=== PATIENT | male | born 1950 | race Caucasian/White ===

== ENCOUNTER 2016-11-05 11:09 | Outpatient (CLI) | payer OTHER ==
[2016-11-04 10:06] LABS: % IMMATURE GRANULOCYTES 0.4 % (0.0-1.1); ABSOLUTE IMMATURE GRANULOCYTES 0.02 10^3/uL (0-0.10); HEMATOCRIT 21.2 % (40.0-51.0); HEMOGLOBIN 6.8 g/dL (13.7-17.5); MEAN CELL HEMOGLOBIN 38.2 pg (27.9-34.1); MEAN CELL HEMOGLOBIN CONC. 32.1 g/dL (32.4-36.7); MEAN CELL VOLUME 119.1 fL (81.5-99.8); MEAN PLATELET VOLUME 10.9 fL (8.7-11.7); RED BLOOD CELL COUNT 1.78 10^6/uL (4.40-6.38); RED CELL DISTRIBUTION WIDTH 23.3 % (11.5-15.2)
== END 2016-11-05 14:30 | disposition home or self-care (01) ==
LOC: FOBOP 11:09
PROVIDERS: ATTEND Internal Medicine Hematology & Oncology
PROC: 30233N1 Transfusion of Nonautologous Red Blood Cells into Peripheral Vein, Percutaneous Approach (ICD-10-PCS; principal; 2016-11-05)
DX: D53.9 Nutritional anemia, unspecified (principal)
CPT/HCPCS: 36430; P9016; P9040

== ENCOUNTER → 2016-11-19 | Outpatient (CLI) | payer OTHER | LOC: FIMAGING 10:47 | PROVIDERS: ATTEND Specialist | DX: N28.89 Other specified disorders of kidney and ureter (principal) ==

== ENCOUNTER → 2016-12-16 | Day surgery (SDC) | payer OTHER ==
[~2016-12-16] MED LIST: CEFAZOLIN 1 GM/DEXTROSE/50 ML BAG IV ONE; LIDOCAINE 1% 2 ML INJ ONE; LIDOCAINE 1% 5 ML SDV ID PRN; LIDOCAINE 2% 100 MG/5 ML SYR ONE; LR 1,000 ML IV ONE; MANNITOL 20% 100 GM/500 ML BAG IV ONE; PROPOFOL 200 MG/20 ML VIAL ONE; ROCURONIUM 100 MG/10 ML VIAL ONE; SKIN ADHESIVE (DERMABOND) 1 EACH TP ONE; THROMBIN (BOVINE) 5,000 UNIT VIAL TP ONE; fentaNYL 100 MCG/2 ML INJ ONE
--- NOTE | 2016-12-16 12:07 | SOAPPROG ---
SOAP Progress Note Assessment/Plan: Assessment: Renal mass Acute discussed at length and risks of having partial nephrectomy on plavix. bleeding, and risks and plan to delay and follow with sonograms to confirm stability of lesion til pt off Plavix Plan: delay surgery til pt off Plavix 12/16/16 12:04 Subjective: discussed situation with and patient and plan for delaying surgical rx since risks of surgery out weigh the risks of waiting. Physical Exam - Physical Exam General Appearance: alert Neck: supple Respiratory: normal breath sounds, No respiratory distress Cardiac/Chest: regular rate, rhythm Abdomen: soft Extremities: No calf tenderness, No Dionte's sign Neuro/Psych: alert, oriented x 3 ICD10 Worksheet Patient Problems: Problems Problem Status Onset Anemia Acute History of coronary artery disease Acute Renal mass Acute - ICD10 Problem Qualifiers (1) Renal mass
== END | disposition home or self-care (01) ==
LOC: FSGY 10:17 → UNDOADMIN 10:17 → F3N 10:17 → EDSTATUS 11:45
PROVIDERS: ATTEND Specialist
DX: N28.89 Other specified disorders of kidney and ureter (principal); Z53.8 Procedure and treatment not carried out for other reasons; I25.10 Atherosclerotic heart disease of native coronary artery without angina pectoris; I25.2 Old myocardial infarction; Z95.5 Presence of coronary angioplasty implant and graft; I10 Essential (primary) hypertension; E78.00 Pure hypercholesterolemia, unspecified
CPT/HCPCS: J0690; J2001; J2704; J3010

== ENCOUNTER → 2017-05-20 | Outpatient (CLI) | payer OTHER | LOC: FIMAGING 12:58 | PROVIDERS: ATTEND Specialist | DX: N28.89 Other specified disorders of kidney and ureter (principal) ==

== ENCOUNTER 2017-06-02 10:23 | Inpatient (IN) | payer OTHER ==
--- NOTE | 2017-06-01 15:02 | GHP ---
[f rep st] PREOP HISTORY AND PHYSICAL HISTORY OF PRESENT ILLNESS: By history, this is a 66-year-old gentleman who has had a left renal mass. At the present time, he is admitted for attempted robotic partial nephrectomy of the left side. He has had cardiovascular issues and maintained and treated by Dr. Jackson. He developed anemia that originally was thought to maybe be a paraneoplastic syndrome, but his blood counts have improved, and the concern at this time is maybe it is related to medication. Options of therapy of an ultrasound biopsy, radiofrequency ablation, cryotherapy , or CyberKnife have been discussed. At the present time, he prefers to have excision so he is admitted for the above procedure. He has had an ultrasound that confirms that he still has the lesion, and it has not grown appreciably. PAST MEDICAL HISTORY: Myocardial infarction, hypertension, hypercholesterolemia. PAST SURGICAL HISTORY: Angioplasty. MEDICATIONS: Include aspirin, atorvastatin, carvedilol. He is off his Plavix. ALLERGIES: None. FAMILY HISTORY: Positive for bladder cancer and hypertension. SOCIAL HISTORY: Moderate alcohol consumption, nonsmoker. REVIEW OF SYSTEMS: Negative cardiac, respiratory, GI, and endocrine. PHYSICAL EXAM: VITAL SIGNS: Stable. CHEST: Clear. HEART: Regular rate and rhythm. ABDOMEN: Normal. No organomegaly, rebound, or guarding. EXTREMITIES : Lower extremities are normal. PLAN: At the present time, he is admitted for the left partial nephrectomy. /[id number]/MODL MTDD
--- NOTE | 2017-06-02 08:22 | PDHPUP ---
History & Physical Update H&P update statement: This history and physical update is based on an assessment of the patient which was completed after admission or registration (within 24 hours), but prior to the surgery/procedure. H&P update: H&P reviewed & patient examined, no change in patient's condition since H&P completed
[~2017-06-02 10:23] MED LIST changes: -CEFAZOLIN 1 GM/DEXTROSE/50 ML BAG IV ONE; -LIDOCAINE 1% 2 ML INJ ONE; -LIDOCAINE 1% 5 ML SDV ID PRN; -LIDOCAINE 2% 100 MG/5 ML SYR ONE; -LR 1,000 ML IV ONE; -PROPOFOL 200 MG/20 ML VIAL ONE; -ROCURONIUM 100 MG/10 ML VIAL ONE; -SKIN ADHESIVE (DERMABOND) 1 EACH TP ONE; +ceFAZolin 2 GM/DEXTROSE 100 ML IV ONE; -fentaNYL 100 MCG/2 ML INJ ONE
[2017-06-02] MEDS ORDERED: LR 1,000 ML IV ONE (10:42)
[2017-06-02] MEDS ORDERED: LIDOCAINE 1% 2 ML INJ ID PRN (10:42)
[2017-06-02] MEDS ORDERED: CEFAZOLIN 2 GM/DEXTROSE/100 ML BAG IV ONE (10:54)
[2017-06-02] MEDS ORDERED: MIDAZOLAM 2 MG/2 ML VIAL IVP ONE (11:05)
--- NOTE | 2017-06-02 11:05 | PDANEPAE ---
ANE History of Present Illness left partial nephrectomy ANE Past Medical History - Cardiovascular History Hx Hypertension: No Hx Arrhythmias: No Hx Chest Pain: No Hx Coronary Artery / Peripheral Vascular Disease: Yes Hx CHF / Valvular Disease: No Hx Palpitations: No Cardiovascular History Comment: CT 04/2016. ANEMIA -HOSP 07/13-07/16 2016 - Pulmonary History Hx COPD: No Hx Asthma/Reactive Airway Disease: No Hx Recent Upper Respiratory Infection: No Hx Oxygen in Use at Home: No Hx Sleep Apnea: No Sleep Apnea Screening Result - Last Documented: Positive - Neurologic History Hx Cerebrovascular Accident: No Hx Seizures: No Hx Dementia: No - Endocrine History Hx Diabetes: No - Renal History Hx Renal Disorders: Yes Renal History Comment: MASS L KIDNEY - Liver History Hx Hepatic Disorders: No - Neurological & Psychiatric Hx Hx Neurological and Psychiatric Disorders: No - Cancer History Hx Cancer: Yes Cancer History Comment: KIDNEY MASS - Congenital Disorder History Hx Congenital Disorders: No - GI History Hx Gastrointestinal Disorders: No - Other Health History Other Health History: NEG - Chronic Pain History Chronic Pain: No - Surgical History Prior Surgeries: ANGIOGRAM - STENT 04/2016 ANE Review of Systems Review of systems is: negative Review of Systems: - Exercise capacity Exercise capacity: >=4 METS METS (RN): 4 METS ANE Patient History - Allergies Allergies/Adverse Reactions: No Known Allergies Allergy (Unverified 07/13/16 10:32) - Home Medications Home Medications: Aspirin EC [Aspirin EC 81 mg (*)] 81 mg PO DAILY 07/13/16 [Last Taken 05/27/17] Atorvastatin Calcium [Lipitor 10 mg (*)] 10 mg PO HS 07/13/16 [Last Taken ] Carvedilol [Coreg (*)] 3.125 mg PO BIDMEAL 07/13/16 [Last Taken 06/02/17 04:00] Multivitamins [Multivitamin (*)] 1 each PO DAILY 07/13/16 [Last Taken 05/27/17] Nitroglycerin [Nitrostat 0.4 mg (*)] 0.4 mg SL Q5M PRN 07/13/16 [Last Taken Unknown] - NPO status NPO Status: no food or drink >8 hours NPO Since - Liquids (Date): 06/02/17 NPO Since - Liquids (Time): 08:00 NPO Since - Solids (Date): 06/01/17 NPO Since - Solids (Time): 18:00 - Anes Hx Anes Hx: no prior problems - Smoking Hx Smoking Status: Never smoked - Alcohol Use Alcohol Use: Occasionally (7/wk) - Family Anes Hx Family Hx Anesthesia Complications: NEG ANE Labs/Vital Signs - Vital Signs Blood Pressure: 172/83 Heart Rate: 82 Respiratory Rate: 16 O2 Sat (%): 96 Height: 179.07 cm Weight: 106.594 kg ANE Physical Exam - Airway Neck exam: FROM Mallampati Score: Class 1 Mouth exam: normal dental/mouth exam - Pulmonary Pulmonary: no respiratory distress - Cardiovascular Cardiovascular: regular rate and rhythym - ASA Status ASA Status: III ANE Anesthesia Plan Anesthesia Plan: general endotracheal anesthesia
[2017-06-02] MEDS ORDERED: ROCURONIUM 100 MG/10 ML VIAL ONE (11:44)
[2017-06-02] MEDS ORDERED: LIDOCAINE 2% 5 ML SDV ONE (11:44)
[2017-06-02] MEDS ORDERED: PROPOFOL 200 MG/20 ML VIAL ONE (11:45)
[2017-06-02] MEDS ORDERED: fentaNYL 100 MCG/2 ML INJ ONE ×3 (11:45→15:44)
[2017-06-02] MEDS ORDERED: DEXAMETHASONE 4 MG/ML VIAL ONE (12:20)
[2017-06-02] MEDS ORDERED: INDOCYANINE GREEN 25 MG VIAL ONE (14:35)
[2017-06-02] MEDS ORDERED: THROMBIN(HUM PLAS)/FIBRINOG/CA 5 ML VIAL TP ONE (14:46)
[2017-06-02] MEDS ORDERED: SUGAMMADEX SODIUM 200 MG/2 ML VIAL IVP ONE (15:07)
[2017-06-02] MEDS ORDERED: ONDANSETRON 4 MG/2 ML VIAL ONE (15:07)
[2017-06-02] MEDS ORDERED: OXYCODONE/APAP 5/325 TAB PO PRN (15:26)
[2017-06-02] MEDS ORDERED: MEPERIDINE 25 MG/ML SYR IVP PRN (15:26)
[2017-06-02] MEDS ORDERED: fentaNYL 100 MCG/2 ML INJ IVP PRN (15:26)
[2017-06-02] MEDS ORDERED: HYDROmorphONE/DILAUDID 1 MG/ML INJ IVP PRN (15:26)
[2017-06-02] MEDS ORDERED: ALBUTEROL 3 ML DEYVIAL IH PRN (15:26)
[2017-06-02] MEDS ORDERED: ONDANSETRON 4 MG/2 ML VIAL IVP PRN ×2 (15:26→15:47)
[2017-06-02] MEDS ORDERED: PROMETHAZINE HCL 25 MG/ML INJ IVP PRN (15:26)
[2017-06-02] MEDS ORDERED: NALOXONE HCL 0.4 MG/ML INJ IVP PRN ×2 (15:26→15:47)
[2017-06-02] MEDS ORDERED: ceFAZolin 1 GM VIAL ONE ×2 (15:38)
[2017-06-02] MEDS ORDERED: BUPIVACAINE 0.25% 30 ML SDV ONE (15:44)
[2017-06-02] MEDS ORDERED: oxyCODONE IR 5 MG TAB PO PRN (15:47)
[2017-06-02] MEDS ORDERED: ACETAMINOPHEN 325 MG TAB PO PRN (15:47)
[2017-06-02] MEDS ORDERED: METOCLOPRAMIDE 10 MG/2 ML VIAL IVP PRN (15:47)
[2017-06-02] MEDS ORDERED: LORazepam 2 MG/ML INJ IVP PRN (15:47)
--- NOTE | 2017-06-02 15:54 | POSTOPPROG ---
Post Op Note Date of Operation: 06/02/17 Surgeon: Rodney Stevenson Silver Solution Mixer: Kim Anesthesia: GET(General Endotracheal) Pre-op Diagnosis: renal mass Procedure: RA left partial nep Inf/Abcess present in the surg proc area at time of surgery?: No EBL: 100-500 Drains: Aurelio Cowart Specimen(s): dictated and specimen sent
--- NOTE | 2017-06-02 17:11 | GOP ---
[f rep st] OPERATIVE REPORT DATE OF OPERATION: 06/02/2017 SURGEON: Rodney Stevenson MD AUTOMOBILE [employer] PROPERTY UNDERWRITER: Cara Alvarez PREOPERATIVE DIAGNOSIS: Left renal mass. POSTOPERATIVE DIAGNOSIS: Left renal mass. PROCEDURE PERFORMED: Left robotic-assisted partial nephrectomy and intraoperative immunofluorescence utilization of the Firefly and intraoperative ultrasound of the renal mass. FINDINGS: INDICATIONS: Preoperatively discussed with he and his the indications, complications, risks associated with this procedure, complication of bleeding, infection, urinary leak, positive margins, need for open surgery, other procedures. I discussed the complexity of the renal hilum based on the blood vessels and that may increase the risk of bleeding from his anatomic variation. Written and verbal consent was obtained. DESCRIPTION OF PROCEDURE: He underwent general anesthesia, after being positioned for a right robotic-assisted partial nephrectomy and the all sites padded, an axillary roll placed and antithrombotic pumps and had a Patino catheter placed, the appropriate timeout and being prepped and draped in normal sterile fashion. Ioban placed over the skin, and at jorgensen's point, he had insufflation of his abdomen with a Veress needle to 15 mmHg pressure. Then a camera port and head start assistant teacher port were placed in the midclavicular line and then the lateral to that were the two 8 mm ports. At that point, inspection of the abdomen revealed that he had adhesions, suggested that maybe at some point, he had some maybe blunt abdominal trauma. He had adhesions taken down of the colon and there was meticulous care to make sure there were no enterotomies ahead of the procedure, there was no staining at that. I did have to mobilize the splenic flexure of the colon to help get the colon out of the way and that was done under direct vision with electrocautery and Hem-o-loks were used to provide hemostasis on appropriate vessels. Of interest, he did have collateral arteries going on the surface of the kidney, and 2 of those a lower and upper polar part, but they appeared to be not really parenchymal in nature. I then identified the ureter and dissected up to where the gonadal vein went into the renal vein and then Hem-o-gunnar'd that to provide some hemostasis. I dissected the artery out and identified the artery just as it came off the aorta and then the renal vein was just anterior to the aorta. At that point, I had dissected out the tumor area after doing an ultrasound that revealed a 2.4 cm lesion and he did have a renal cyst at the top of the left pole of the kidney and I did not intervene with that cyst. At that point, after having appropriate demarcation for marking of the tumor, I gave him 12.5 g of mannitol and then had placed a bulldog clamp x2 on the renal artery just as it came off the aorta. Then he was given the immunofluorescent dye, 7.5 mg, and with the Firefly technique, there was no significant vascularity to the kidney. In the middle of the tumor, he had a couple of small vessels that were present but they did not look vascularized. Then at that point, started excising the tumor with approximately a 5 mm margin, and of interest is there were approximately 5 small arteries feeding the tumor, and on the dissection, I had cauterized the arteries. This happened to fill the tumor bed, but on inspection, it appeared that after removal of the tumor there was no gross lesion or gross abnormality left behind. I did do a single biopsy of the inferior margin and sent that with the specimen, and then after that, I used a 4-0 Monocryl to close the running closure of the depth of the incision and then a serpentine closure with an 0 Vicryl x2 using Hem-o-loks as pledgets to approximate the nephrotomy edges. Then at that point, biologic glue and Surgicel was placed over the nephrostomy site. Then removed the bulldog clamps and there was no bleeding in the hilum identified. After perfusion of the kidney, it appeared to have good blood flow. There was no significant pooling of blood around the nephrotomy site. The specimens were placed in the bag and that was removed. Used a fascial closure device to close the two 12 mm ports, 8 mm ports were hemostatic and then he did have a drain brought out through the inferior 8 mm port and that was sewn in place with a 3-0 silk. It was strategically placed behind the kidney just below the reflection of the perineum inferior to the spleen. Estimated blood loss per Anesthesia was 150 mL. Complications none. Specimen was as noted and I will discuss with his the findings encountered. During the procedure when I did the nephrotomy, because I did not place a clamp across the renal vein, it increased the intraabdominal pressure to 20 mmHg. The clamp time was approximately 46 minutes. That prolonged time was trying to do the Firefly technique to confirm there was no significant blood flow to the kidney. At the end of the procedure, there was minimal blood in the urinary drainage bag, and skin was closed with 4-0 Monocryl and Dermabond, and he will be admitted for postoperative care. /[id number]/MODL MTDD
[2017-06-02] MEDS: HYDROmorphONE/DILAUDID 6 MG/30 ML PCA IV PRN (17:45)
[2017-06-02] MEDS: CARVEDILOL 3.125 MG TAB PO SCH (22:42)
[2017-06-03] MEDS: D5W 1/2 NS W/ 20 KCl/L 1,000 ML IV SCH ×3 (00:29→17:02)
[2017-06-03 05:04] LABS: % IMMATURE GRANULYOCYTES 0.2 % (0.0-1.1); ABSOLUTE IMMATURE GRANULOCYTES 0.03 10^3/uL (0.00-0.10); ADD DIFF? NO; ADD MORPH? NO; ADD SCAN? NO; ATYPICAL LYMPHOCYTE FLAG 0 (0-99); FRAGMENT RBC FLAG 0 (0-99); HEMATOCRIT 41.1 % (40.0-51.0); HEMOGLOBIN 13.7 g/dL (13.7-17.5); LEFT SHIFT FLG 20 (0-99); LIPEMIA HEMOLYSIS FLAG 80 (0-99); MEAN CELL HEMOGLOBIN 36.8 pg (27.9-34.1); MEAN CELL HEMOGLOBIN CONCENTR. 33.3 g/dL (32.4-36.7); MEAN CELL VOLUME 110.5 fL (81.5-99.8); MEAN PLATELET VOLUME 10.7 fL (8.7-11.7); PLATELET CLUMPS FLAG 0 (0-99); PLATELET COUNT 242 10^3/uL (150-400); RED BLOOD CELL COUNT 3.72 10^6/uL (4.40-6.38); RED CELL DISTRIBUTION WIDTH 14.2 % (11.5-15.2)
[2017-06-03 05:21] LABS: ANION GAP 7 mEq/L (8-16); CALCIUM 9.2 mg/dL (8.5-10.4); CARBON DIOXIDE 29 mEq/l (22-31); CHLORIDE 99 mEq/L (97-110); GLOMERULAR FILTRATION RATE > 60; GLUCOSE 149 mg/dL (70-100); POTASSIUM 5.1 mEq/L (3.5-5.2); SODIUM 135 mEq/L (134-144)
[2017-06-03] MEDS: CARVEDILOL 3.125 MG TAB PO SCH ×2 (08:37→17:00)
[2017-06-03] MEDS: HYDROmorphONE/DILAUDID 6 MG/30 ML PCA IV PRN (09:44)
--- NOTE | 2017-06-03 13:02 | SOAPPROG ---
SOAP Progress Note Assessment/Plan: Assessment: left robotic assisted partial nephrectomy Plan: Patient was encouraged to ambulate. Consider SARAH and osorio removal tomorrow, hopefully will d/c tomorrow. 06/03/17 13:00 l Subjective: Not ready to go home. Objective: Vital Signs Temp Pulse Resp BP Pulse Ox 36.7 C 60 18 133/72 H 96 06/03/17 12:22 06/03/17 12:22 06/03/17 12:22 06/03/17 12:22 06/03/17 12:22 Laboratory Results 06/03/17 04:38 06/03/17 04:38 06/02/17 06/03/17 06/04/17 05:59 05:59 05:59 Intake Total 3300 Output Total 1525 50 Balance 1775 -50 Physical Exam - Physical Exam General Appearance: alert, no apparent distress Neck: normal inspection Respiratory: normal breath sounds, No respiratory distress Cardiac/Chest: regular rate, rhythm Abdomen: distended, No rigid (sarah draining bloody fluid. incisions healing well without infection) Male Genitalia: other (osorio in draining clear urine) Skin: normal color, warm/dry ICD10 Worksheet Patient Problems: Problems Problem Status Onset Anemia Acute History of coronary artery disease Acute Renal mass Acute
[2017-06-04] MEDS: D5W 1/2 NS W/ 20 KCl/L 1,000 ML IV SCH (01:53)
--- NOTE | 2017-06-04 07:49 | SOAPPROG ---
TROY Progress Note Assessment/Plan: Assessment: Renal mass Acute POD 2, path pending Plan: DC in AM Tuesday06/04/17 08:32 Subjective: doing well Objective: Vital Signs Temp Pulse Resp BP Pulse Ox 37.0 C 71 14 128/68 H 93 06/04/17 07:33 06/04/17 07:33 06/04/17 07:33 06/04/17 07:33 06/04/17 07:33 Laboratory Results 06/03/17 04:38 06/03/17 04:38 06/03/17 06/04/17 06/05/17 05:59 05:59 05:59 Intake Total 3300 3718 0 Output Total 1525 2895 Balance 1775 823 0 Physical Exam - Physical Exam General Appearance: alert Respiratory: No respiratory distress Cardiac/Chest: regular rate, rhythm Abdomen: soft Back: No CVA tenderness Extremities: No calf tenderness, No Dionte's sign Neuro/Psych: alert, oriented x 3 ICD10 Worksheet Patient Problems: Problems Problem Status Onset Anemia Acute History of coronary artery disease Acute Renal mass Acute
[2017-06-04] MEDS: CARVEDILOL 3.125 MG TAB PO SCH (08:33)
[2017-06-04 11:27] VITALS: BP 138/77; PULSE 58; RESP 16; TEMP 99.1; O2SAT 90
--- NOTE | 2017-06-05 17:06 | ASDISCHSUM ---
Discharge Information Plan Status:Home with No Needs Medically Cleared to Leave: Discharge Date: CM D/C Disposition:Home, Routine, Self-Care ADT D/C Disposition:Home, Routine, Self-Care Projected Discharge Date: Transportation at D/C:Family Discharge Delay Reason: Follow-Up Date: Discharge Slot: Final Diagnosis:Renal Mass Placement Information Patient Contact Information Contact Name:KORI Relationship: Address:[address] [place] [address] City:[place] Alternate Phone: State/Zip Code:[place] [address] Email: Financial Information Financial Class:[facility] Primary Plan Desc:ROBE PPO HMO OPEN ACC LOCAL Primary Plan Number:[id number] Secondary Plan Desc:MEDICARE INPATIENT Secondary Plan Number:[id number] Assessment Information [facility] CM Progress Note CM Note CM Note Notes: Pt admitted for partial nephrectomy. Plan is for DC tomorrow. Pt will likely have no needs. Date Signed: 06/03/2017 03:20 PM Electronically Signed By:Lyla Marquez Intervention Information
--- NOTE | 2017-06-09 15:49 | PQFORM ---
PHYSICIAN QUERY FORM Needs Your Response This query form is being sent to you to assure this patient record is coded properly. Please respond to the question below: ABSTRACTOR QUESTION: Dear Dr. Stevenson On 06/02/2017 patient had a partial nephrectomy for a left renal mass. 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 Do you agree with the pathology findings? ____x_ Yes No Other more appropriate diagnosis Unable to determine Thank you POLLY Mcnair HIM/Coding Dept. [phone] INSTRUCTIONS FOR RESPONSE: Answer question by clicking on the "Edit Document" button. Move cursor to area below the stars. When complete, hit "Save." Click on the "Sign" button, then click "Sign" again. Type in your PIN and hit "Enter." MTDD
== END 2017-06-04 12:31 | disposition home or self-care (01) | DRG 658 ==
LOC: F3N 10:23 → F1N 17:01
PROVIDERS: ADMIT Specialist; ATTEND Specialist
PROC: 8E0W0CZ Robotic Assisted Procedure of Trunk Region, Open Approach (ICD-10-PCS; principal; 2017-06-02 11:45)
PROC: 0TB10ZZ Excision of Left Kidney, Open Approach (ICD-10-PCS; principal; 2017-06-02 11:45)
DX: C64.2 Malignant neoplasm of left kidney, except renal pelvis (principal); E78.00 Pure hypercholesterolemia, unspecified; I10 Essential (primary) hypertension; I25.2 Old myocardial infarction; Z79.82 Long term (current) use of aspirin; Z80.52 Family history of malignant neoplasm of bladder
CPT/HCPCS: J0690; J1100; J1170; J2250; J2405; J2704; J3010

== ENCOUNTER 2019-01-16 01:03 | Observation (INO) | payer OTHER ==
[2019-01-16 01:44] LABS: PLATELET COUNT 214 10^3/uL (150-400)
--- NOTE | 2019-01-16 02:04 | EDPHY ---
H & P Stated Complaint: central CP since midnight Time Seen by Provider: 01/16/19 02:10 HPI/ROS: HPI The patient presents with chest pain which began at about 12 midnight tonight while he was lying awake in bed. Within about 5 min from when it started at built maximum intensity. He describes it as a pain or pressure like sensation throughout his epigastrium and sternal region. It has been constant. He has no history of similar symptoms. It is associated with nausea without vomiting. He took a dose of an antacid as well as a dose of nitroglycerin without any improvement in his symptoms. He did take an aspirin today. He does not have any shortness of breath, dizziness, diaphoresis. He does not have any chest pain upon exertion. He had dinner at about 7:00 p.m. Tonight, chicken Jr, glass of wine, spicy salsa. He has a history of an [place] several years ago and had a stent placed in his circumflex which is drug alluding. He has not had any cardiac testing recently. REVIEW OF SYSTEMS 10 systems were reviewed and negative with the exception of the elements mentioned in the history of present illness. PMHx: CAD with stent in place, hypertension, renal mass status post resection Soc Hx: Housed, here with his family, occasional alcohol use PHYSICAL General Appearance: Alert, no distress Eyes: Pupils equal and round no pallor or injection ENT, Mouth: Mucous membranes moist Respiratory: There are no retractions, lungs are clear to auscultation Cardiovascular: Regular rate and rhythm Gastrointestinal: Abdomen is soft and non-tender, no masses, bowel sounds normal Neurological: A&O, moves all extremities Skin: Warm and dry, no rashes Musculoskeletal: Neck is supple non tender Extremities: symmetrical, full range of motion Psychiatric: Patient is oriented X 3, there is no agitation Source: Patient Exam Limitations: No limitations - Personal History Current Tetanus/Diphtheria Vaccine: Yes - Medical/Surgical History Hx Asthma: No Hx Chronic Respiratory Disease: No Hx Diabetes: No Hx Cardiac Disease: Yes Hx Renal Disease: No Hx Cirrhosis: No Hx Alcoholism: No Hx HIV/AIDS: No Hx Splenectomy or Spleen Trauma: No Other PMH: [place] STENT PLACEMENT- 04/2016, HTN, RENAL MASS WITH LEFT PARTIAL NEPHRECTOMY 05/2017 - Social History Smoking Status: Never smoked Constitutional: Initial Vital Signs Temperature (C) 36.5 C 01/16/19 01:05 Heart Rate 68 01/16/19 01:05 Respiratory Rate 16 01/16/19 01:05 Blood Pressure 138/72 H 01/16/19 01:05 O2 Sat (%) 93 01/16/19 01:05 O2 Delivery Mode Room Air Allergies/Adverse Reactions: No Known Allergies Allergy (Verified 01/16/19 01:07) Home Medications: Medication Instructions Recorded Aspirin EC [Aspirin EC 81 mg (*)] 81 mg PO DAILY 07/13/16 Atorvastatin Calcium [Lipitor 10 10 mg PO HS 07/13/16 mg (*)] Carvedilol [Coreg (*)] 3.125 mg PO BIDMEAL 07/13/16 Multivitamins [Multivitamin (*)] 1 each PO DAILY 07/13/16 Nitroglycerin [Nitrostat 0.4 mg 0.4 mg SL Q5M PRN 07/13/16 (*)] Medical Decision Making - Diagnostics EKG Interpretation: EKG: Complete interpretation has been separately recorded in the [facility] archive. Summary impression: Normal sinus rhythm with no ST segment change Imaging Results: Imaging Impressions Abdomen Ultrasound 01/16/19 02:11 Impression: 1. Cholelithiasis. No visualized biliary obstruction. If there is concern for cystic duct obstruction, consider obtaining a nuclear medicine HIDA scan. 2. Steatosis of the liver. Final results are concordant with the initial interpretation and 3:[address] Chest x-ray two view shows no cardiomegaly, no effusion, no infiltrate, interpreted by me, radiology interpretation pending. Imaging: I viewed and interpreted images myself Differential Diagnosis: 68-year-old man with known CAD status post drug-eluting stent placement, presents from home with chest pain since about midnight tonight which occurred while lying in bed. Vital signs are normal, he is well-appearing. He has taken an aspirin already. EKG, chest x-ray, troponin all initially normal. He does have slight elevation in his AST as compared to prior levels which could be related to alcohol use verses biliary colic. Because of this I have ordered a right upper quadrant ultrasound. Either way, he will likely require admission to the hospital as his HEART score is 5. I have explained this to him. Ultrasound demonstrated possible cholelithiasis. It is unclear if this is contributing to the patient's symptoms, however given his cardiac history I do feel he should be admitted to the hospital for further evaluation. He is happy with this plan. The case is discussed with Dr. Schumacher of the hospitalist service and the patient will be admitted to the PCU. - Data Points Laboratory Results: Laboratory Results 01/16/19 01:25 01/16/19 01:25 01/16/19 01/16/19 01/16/19 01:28 01: 01:25 WBC 4.59 10^3/uL 10^3/uL (3.80-9.50) RBC 2.42 10^6/uL L 10^6/uL (4.40-6.38) Hgb 10.6 g/dL L g/dL (13.7-17.5) Hct 29.4 % L % (40.0-51.0) MCV 121.5 fL H fL (81.5-99.8) MCH 43.8 pg H pg (27.9-34.1) MCHC 36.1 g/dL g/dL (32.4-36.7) RDW 15.7 % H % (11.5-15.2) Plt Count 214 10^3/uL 10^3/uL (150-400) MPV 11.4 fL fL (8.7-11.7) Neut % (Auto) 46.6 % % (39.3-74.2) Lymph % (Auto) 39.0 % % (15.0-45.0) [place] % (Auto) 10.9 % % (4.5-13.0) Eos % (Auto) 3.3 % % (0.6-7.6) Baso % (Auto) 0.0 % L % (0.3-1.7) Nucleat RBC Rel Count 0.0 % % (0.0-0.2) Absolute Neuts (auto) 2.14 10^3/uL 10^3/uL (1.70-6.50) Absolute Lymphs (auto) 1.79 10^3/uL 10^3/uL (1.00-3.00) Absolute Monos (auto) 0.50 10^3/uL 10^3/uL (0.30-0.80) Absolute Eos (auto) 0.15 10^3/uL 10^3/uL (0.03-0.40) Absolute Basos (auto) 0.00 10^3/uL L 10^3/uL (0.02-0.10) Absolute Nucleated RBC 0.00 10^3/uL 10^3/uL (0-0.01) Immature Gran % 0.2 % % (0.0-1.1) Immature Gran # 0.01 10^3/uL 10^3/uL (0.00-0.10) Platelet Estimate ADEQUATE (ADEQ) Polychromasia 1+ H Oval Macrocytes 2+ H Rouleaux PRESENT H Smear Review By Pending Sodium 140 mEq/L mEq/L (135-145) Potassium 3.9 mEq/L mEq/L (3.5-5.2) Chloride 105 mEq/L mEq/L (97-110) Carbon Dioxide 27 mEq/l mEq/l (22-31) Anion Gap 8 mEq/L mEq/L (6-14) BUN 19 mg/dL mg/dL (7-23) Creatinine 0.9 mg/dL mg/dL (0.7-1.3) Estimated GFR > 60 Glucose 98 mg/dL mg/dL (70-100) Calcium 9.3 mg/dL mg/dL (8.5-10.4) Total Bilirubin 2.0 mg/dL H mg/dL (0.1-1.4) AST 72 IU/L H IU/L (17-59) ALT 54 IU/L IU/L (21-72) Alkaline Phosphatase 89 IU/L IU/L (38-126) POC Troponin I 0.00 ng/mL ng/mL (0.00-0.08) Total Protein 6.7 g/dL g/dL (6.3-8.2) Albumin 4.2 g/dL g/dL (3.5-5.0) Point of Care Test Results: Chemistry 01/16/19 01:28 POC Troponin I 0.00 ng/mL ng/mL (0.00-0.08) Departure - Departure Disposition: [facility] Inpatient Acute Clinical Impression: History of coronary artery disease Chest pain Qualifiers: Chest pain type: unspecified Qualified Code(s): R07.9 - Chest pain, unspecified Cholelithiasis Qualifiers: Cholelithiasis location: gallbladder Cholecystitis presence: without cholecystitis Biliary obstruction: without biliary obstruction Qualified Code(s) : K80.20 - Calculus of gallbladder without cholecystitis without obstruction Condition: Fair
[2019-01-16] MEDS ORDERED: ONDANSETRON 4 MG/2 ML VIAL IVP PRN (03:40)
[2019-01-16] MEDS ORDERED: ONDANSETRON DISINTEGRATING 4 MG TAB PO PRN (03:40)
[2019-01-16] MEDS ORDERED: ACETAMINOPHEN 325 MG TAB PO PRN (03:40)
[2019-01-16] MEDS ORDERED: NITROGLYCERIN 0.4 MG BTL SL PRN (03:42)
--- NOTE | 2019-01-16 04:09 | PDGENHP ---
History and Physical - Chief Complaint Chest pain - History of Present Illness 68 yo M w/ hx of CAD presents with chest pain. The patient was resting in bed when he developed central chest/upper abdominal pain. The pain was fairly severe. He tried an antacid at home but this had no effect. He has never had similar pain in the past. He had an CO in 2016 treated with a stent to L circ but at that time only presented with jaw pain. Today he felt diaphoretic but denies radiation of the pain or shortness of breath. The pain lasted about 3 hours and resolved after lying down in the ED. He takes daily ASA, statin, and BB. He is chest pain free at the time of my evaluation. His evaluation in the ED is so far unremarkable with non-ischemic ECG and negative troponin. He is being admitted for further evaluation. Case discussed with ED physician Dr. Guevara; records reviewed and summarized above. History Information - Allergies/Home Medication List Allergies/Adverse Reactions: No Known Allergies Allergy (Verified 01/16/19 01:07) Home Medications: Aspirin EC [Aspirin EC 81 mg (*)] 81 mg PO DAILY 07/13/16 [Last Taken 05/27/17] Atorvastatin Calcium [Lipitor 10 mg (*)] 10 mg PO HS 07/13/16 [Last Taken ] Carvedilol [Coreg (*)] 3.125 mg PO BIDMEAL 07/13/16 [Last Taken 06/02/17 04:00] Multivitamins [Multivitamin (*)] 1 each PO DAILY 07/13/16 [Last Taken 05/27/17] Nitroglycerin [Nitrostat 0.4 mg (*)] 0.4 mg SL Q5M PRN 07/13/16 [Last Taken Unknown] I have personally reviewed and updated: family history, medical history - Past Medical History coronary artery disease, cancer (RCC) - Surgical History Reports: coronary stent Additional surgical history: L partial nephrectomy 2016 - Family History Negative for: cancer - Social History Smoking Status: Never smoked Review of Systems Review of Systems: ROS: 10pt was reviewed & negative except for what was stated in HPI & below Physical Exam Physical Exam: Temp Pulse Resp BP Pulse Ox 36.6 C 65 16 142/69 H 96 01/16/19 04:03 01/16/19 04:03 01/16/19 04:03 01/16/19 04:03 01/16/19 04:03 Constitutional: no apparent distress, not in pain Eyes: PERRL, EOMI Ears, Nose, Mouth, Throat: moist mucous membranes, no oral mucosal ulcers Cardiovascular: regular rate and rhythym, no murmur, rub, or gallop Respiratory: no respiratory distress, clear to auscultation Gastrointestinal: normoactive bowel sounds, soft, non-tender abdomen Skin: warm, normal color Musculoskeletal: full muscle strength, no muscle tenderness Neurologic: AAOx3, CN II-XII Intact Psychiatric: interacting appropriately, not anxious Lab Data & Imaging Review 01/16/19 01:25 01/16/19 01:25 WBC 4.59 10^3/uL (3.80-9.50) 01/16/19 01:25 RBC 2.42 10^6/uL (4.40-6.38) L 01/16/19 01:25 Hgb 10.6 g/dL (13.7-17.5) L 01/16/19 01:25 Hct 29.4 % (40.0-51.0) L 01/16/19 01:25 MCV 121.5 fL (81.5-99.8) H 01/16/19 01:25 MCH 43.8 pg (27.9-34.1) H 01/16/19 01:25 MCHC 36.1 g/dL (32.4-36.7) 01/16/19 01:25 RDW 15.7 % (11.5-15.2) H 01/16/19 01:25 Plt Count 214 10^3/uL (150-400) 01/16/19 01:25 MPV 11.4 fL (8.7-11.7) 01/16/19 01:25 Neut % (Auto) 46.6 % (39.3-74.2) 01/16/19 01:25 Lymph % (Auto) 39.0 % (15.0-45.0) 01/16/19 01:25 Winn % (Auto) 10.9 % (4.5-13.0) 01/16/19 01:25 Eos % (Auto) 3.3 % (0.6-7.6) 01/16/19 01:25 Baso % (Auto) 0.0 % (0.3-1.7) L 01/16/19 01:25 Nucleat RBC Rel Count 0.0 % (0.0-0.2) 01/16/19 01:25 Absolute Neuts (auto) 2.14 10^3/uL (1.70-6.50) 01/16/19 01:25 Absolute Lymphs (auto) 1.79 10^3/uL (1.00-3.00) 01/16/19 01:25 Absolute Monos (auto) 0.50 10^3/uL (0.30-0.80) 01/16/19 01:25 Absolute Eos (auto) 0.15 10^3/uL (0.03-0.40) 01/16/19 01:25 Absolute Basos (auto) 0.00 10^3/uL (0.02-0.10) L 01/16/19 01:25 Absolute Nucleated RBC 0.00 10^3/uL (0-0.01) 01/16/19 01:25 Immature Gran % 0.2 % (0.0-1.1) 01/16/19 01:25 Immature Gran # 0.01 10^3/uL (0.00-0.10) 01/16/19 01:25 Platelet Estimate ADEQUATE (ADEQ) 01/16/19 01:25 Polychromasia 1+ H 01/16/19 01:25 Oval Macrocytes 2+ H 01/16/19 01:25 Rouleaux PRESENT H 01/16/19 01:25 Sodium 140 mEq/L (135-145) 01/16/19 01:25 Potassium 3.9 mEq/L (3.5-5.2) 01/16/19 01:25 Chloride 105 mEq/L (97-110) 01/16/19 01:25 Carbon Dioxide 27 mEq/l (22-31) 01/16/19 01:25 Anion Gap 8 mEq/L (6-14) 01/16/19 01:25 BUN 19 mg/dL (7-23) 01/16/19 01:25 Creatinine 0.9 mg/dL (0.7-1.3) 01/16/19 01:25 Estimated GFR > 60 01/16/19 01:25 Glucose 98 mg/dL (70-100) 01/16/19 01:25 Calcium 9.3 mg/dL (8.5-10.4) 01/16/19 01:25 Total Bilirubin 2.0 mg/dL (0.1-1.4) H 01/16/19 01:25 AST 72 IU/L (17-59) H 01/16/19 01:25 ALT 54 IU/L (21-72) 01/16/19 01:25 Alkaline Phosphatase 89 IU/L (38-126) 01/16/19 01:25 POC Troponin I 0.00 ng/mL (0.00-0.08) 01/16/19 01:28 Total Protein 6.7 g/dL (6.3-8.2) 01/16/19 01:25 Albumin 4.2 g/dL (3.5-5.0) 01/16/19 01:25 Visualized and Interpreted EKG results: Yes EKG Interpretation: Positive for: normal sinsus rhythm, NS ST wave abnormalities Assessment & Plan Assessment: 68 yo M w/ hx of CAD presents with chest pain. Plan: 1. Chest pain - Severe chest pain developed while at rest, now resolved. He has a hx of CO in 2016 but with different presentation. His initial work-up is reassuring including ECG (personally reviewed/interpreted) with only non- specific T wave changes in V1/V2 and negative troponin. HEART score of 6 denoting need for further evaluation. - Observe in PCU - Monitor on telemetry, trend cardiac enzymes - Will order Lexiscan nuclear stress test noting previous revascularization - ECG, NTG PRN for chest pain 2. Hx CAD - S/p CO in 2016 s/p JENN to LCx. - Continue ASA, BB, statin pending reconciliation 3. Hx RCC - S/p L partial nephrectomy 4. Macrocytic anemia - Unclear etiology; this has been worked up extensively as an outpatient without clear etiology, per patient. B12 was normal when checked last month. Diet - NPO Code - Full Ppx - LMWH Dispo - Admit under observation status
[2019-01-16] MEDS ORDERED: ENOXAPARIN 40 MG/0.4 ML SYR SC SCH (09:00)
[2019-01-16] MEDS ORDERED: REGADENOSON 0.4 MG/5 ML SYR IVP ONE (11:39)
[2019-01-16 13:06] VITALS: BP 134/77
--- NOTE | 2019-01-16 13:32 | CPR ---
[f rep st] NONINVASIVE CARDIAC PROCEDURE REPORT DATE OF PROCEDURE: 01/16/2019 Lexiscan Nuclear Stress Test REASON FOR TEST: Chest pain. INTERPRETATION: Resting EKG shows a sinus bradycardia with a rate of 50. No ischemic changes noted. Resting blood pressure 126/78. Resting oxygen saturation 93%. He is asymptomatic prior to testing . LEXISCAN PORTION: Lexiscan injected rapidly followed by saline flush. Cardiolite was THEN injected, followed by saline flush. Blood pressure 139/68, peak heart rate 83, oxygen saturation 97%. EKG showed occasional PVC. He remained asymptomatic with slight flushing noted. RECOVERY: He did spontaneously recover. There were no EKG changes. Blood pressure 134/73, heart ra te 76, oxygen saturation 94%. He is completely asymptomatic at the conclusion of test. At this time he currently is stable to go for nuclear imaging. /[id number]/MODL
[2019-01-16] MEDS ORDERED: CARVEDILOL 3.125 MG TAB PO SCH (18:00)
[2019-01-16] MEDS ORDERED: ATORVASTATIN CALCIUM 10 MG TAB PO SCH (21:00)
--- NOTE | 2019-01-17 05:01 | GDS ---
[f rep st] DISCHARGE SUMMARY DISCHARGE DIAGNOSES: 1. Chest pain. 2. Macrocytic anemia. 3. Coronary artery disease, status post stent. 4. Renal cell carcinoma, status post partial nephrectomy. HISTORY: The patient is a 68-year-old male presenting with chest pain. He had an HI in 2016 treated with a stent to the left circ. He presented to the ER and was chest pain-free. He had a nonischemi c EKG and negative troponin. He was admitted to observation. He had a nuclear stress test that was negative. He has a very abnormal CBC although he is followed very closely with Dr. Yadav. He says he has mu ltiple negative bone marrow biopsies. B12 was normal. SPEP and UPEP were normal. Interesting durin g this hospitalization is that he has evidence of rouleaux, suggesting an abnormal protein. He has n ot had this in the past. He will follow up closely with Dr. Yadav to see if any further workup is indicated. DISCHARGE MEDICATIONS: Please see computerized record for full detailed list. There were no new medications given at the time of hospital discharge. ADDITIONAL DISCHARGE INSTRUCTIONS: Follow up with Dr. Yadav regarding rouleaux finding on CBC. /[id number]/MODL
[2019-01-17] MEDS ORDERED: ASPIRIN EC 81 MG TAB PO SCH (09:00)
== END 2019-01-16 15:22 | disposition home or self-care (01) ==
LOC: F2W 04:15
PROVIDERS: ADMIT Student in an Organized Health Care Education/Training Program; ATTEND Student in an Organized Health Care Education/Training Program
DX: R07.9 Chest pain, unspecified (principal); D53.9 Nutritional anemia, unspecified; I25.10 Atherosclerotic heart disease of native coronary artery without angina pectoris; Z85.528 Personal history of other malignant neoplasm of kidney; Z90.5 Acquired absence of kidney
CPT/HCPCS: 71046; 76705; 78452; 93017; 96372; 99285; A9500; G0378; 84484-ER; J1650; J2785